=== PATIENT | male | born 1985 | race Caucasian/White ===

== ENCOUNTER 2022-06-09 19:22 | Outpatient (CLI) | payer OTHER, SELFPAY ==
[2022-06-10 22:28] LABS: Prolactin 6.8 ng/mL (2.1-17.7)
== END 2022-06-09 19:23 | disposition home or self-care (01) ==
PROVIDERS: PCP Physician Assistant Medical; Visit Provider Physician Assistant Medical
DX: R53.83 Other fatigue (principal)
CPT/HCPCS: 84146; 84443

== ENCOUNTER 2022-07-21 17:16 | Outpatient (CLI) | payer OTHER, SELFPAY ==
[2022-07-22 21:34] LABS: Testosterone, Adult Male 1151 ng/dL (300-1080)
== END 2022-07-21 17:17 | disposition home or self-care (01) ==
PROVIDERS: PCP Physician Assistant Medical; Visit Provider Physician Assistant Medical
DX: F32.A Depression, unspecified (principal)
CPT/HCPCS: 84403

== ENCOUNTER 2023-07-06 09:17 | Outpatient (CLI) | payer OTHER, SELFPAY | END 2023-07-06 09:18 | disposition home or self-care (01) | PROVIDERS: PCP Physician Assistant Medical; Visit Provider Physician Assistant Medical | DX: Z13.220 Encounter for screening for lipoid disorders (principal); Z13.0 Encounter for screening for diseases of the blood and blood-forming organs and certain disorders involving the immune mechanism | CPT/HCPCS: 80053; 80061; 85027 ==